=== PATIENT | female | born 1935 | race Caucasian/White ===

== ENCOUNTER 2018-10-08 15:25 | Emergency (ER) | payer MEDICARE ==
[2018-10-08 15:47] VITALS: BP 115/55; PULSE 53; RESP 18; TEMP 97.7
--- NOTE | 2018-10-08 16:08 | ED ---
Fall HPI - General Chief Complaint: Fall Stated Complaint: Fall Time Seen by Provider: 10/08/18 15:30 Source: family Mode of arrival: EMS - History of Present Illness Initial Comments: 82-year-old female past medical history of hypertension and Alzheimer's presenting today for fall. Patient is accompanied by daughter and . Patient has poor short-term memory interfering with history taking. states that patient has had frequent falls due to her decreasing visual acuity and progressive dementia. He states that he was helping patient to the bathroom when she tripped over her feet falling forward into him him a he states they both fell to the ground. He states he is almost positive but not 100% sure that she did not hit her head. He denies her losing consciousness or passing out prior to falling. She states this was mechanical and due to her catching her feet. He states she was ambulatory following fall, fully weightbearing on both legs. He denied any abnormal or unusual behaviors following fall. He states she was acting like her usual self. Patient is able to answer questions for review of systems in regards to current symptoms, she denies any hip, back or neck pain visual changes, chest pain, dyspnea, shortness of breath, dyspnea on exertion. Patient states she is feeling well. Patient is smiling and appears well on examination. There is no evidence of bruising or soft tissue swelling upon general inspection. Patient's vital signs within acceptable limits. - Related Data Allergies Allergy/AdvReac Type Severity Reaction Status Date / Time No Known Allergies Allergy Verified 10/08/18 15:41 Review of Systems ROS Statement: Those systems with pertinent positive or pertinent negative responses have been documented in the HPI. ROS Other: All systems not noted in ROS Statement are negative. Past Medical History Past Medical History: Dementia, Hypertension History of Any Multi-Drug Resistant Organisms: None Reported Past Surgical History: Unable to Obtain Past Psychological History: Unable to Obtain Smoking Status: Never smoker Past Alcohol Use History: None Reported Past Drug Use History: None Reported General Exam - General Exam Comments Initial Comments: General: The patient is awake and alert, in no distress, and does not appear acutely ill. Eye: +3 mm pupils are equal, round and reactive to light, extra-ocular movements are intact. No nystagmus. There is normal conjunctiva bilaterally. No signs of icterus. Ears, nose, mouth and throat: There are moist mucous membranes and no oral lesions. Neck: The neck is supple, there is no tenderness or JVD. Cardiovascular: There is a regular rate and rhythm. No murmur, rub or gallop is appreciated. Respiratory: Lungs are clear to auscultation, respirations are non-labored, breath sounds are equal. No wheezes, stridor, rales, or rhonchi. Gastrointestinal: Soft, non-distended, non-tender abdomen without masses or organomegaly noted. There is no rebound or guarding present. Bowel sounds are unremarkable. Musculoskeletal: H joint of the upper and lower extremities were palpated, patient denies any pain there is no noted soft tissue swelling. No shortening or internal rotation noted of the hips. Patient is able to fully weight-bear and ambulate upon examination. Normal ROM, no tenderness of the upper and lower extremities. Strength 5/5. Sensation intact of the upper and lower extremities. Radial pulses equal bilaterally 2+. Neurological: A&O x 3. CN II-XII intact, There are no obvious motor or sensory deficits. Coordination appears grossly intact. Speech is normal. Skin: Skin is warm and dry and no rashes or lesions are noted. There are no areas of ecchymosis or soft tissue swelling. No abrasions or lacerations. No skin tears. Psychiatric: Cooperative, appropriate mood & affect, normal judgment. Limitations: altered mental status Course Vital Signs 10/08/18 15:41 Temperature 97.7 F Pulse Rate 53 L Respiratory 18 Rate Blood Pressure 115/55 O2 Sat by Pulse 99 Oximetry - Reevaluation(s) Reevaluation #1: Social work was contacted due to frequent falls due to patient's chronic medical conditions. Patient lives alone with her , this is her 11th fall in the past 2 years. 10/08/18 16:08 Medical Decision Making - Medical Decision Making No concerning physical examination findings. No signs of focal neurological deficits. CT of the brain and C-spine without contrast negative for acute intracranial process. states that this fall was mechanical. Vital signs within acceptable limits. machine lay out worker contacted due to patient's progressive dementia and falls and home. Family was given references for long- term care facilities, assisted living facilities, and in-home help. Family states that they will arrange more in-home help or consider assisted living situation. Family states the patient is acting appropriately, at baseline. At this time I feel patient is stable for discharge with primary care follow-up in the next 1-2 days. Patient discharged in stable condition after discussing case with Dr. Purvis. Disposition Clinical Impression: Fall Disposition: HOME SELF-CARE Condition: Good Instructions: Fall Prevention for Older Adults (ED) Additional Instructions: Please follow-up with family doctor in the next 2 days. Please return to emergency room if the symptoms increase or worsen or for any other concerns. Is patient prescribed a controlled substance at d/c from ED?: No Referrals: Jean Paul Sutherland MD [Primary Care Provider] - 1-2 days Time of Disposition: 18:11
--- NOTE | 2018-10-08 16:35 | CT ---
EXAMINATION TYPE: CT brain yue daniel DATE OF EXAM: 10/08/2018 COMPARISON: None HISTORY: 82-year-old female FALL on thinners CT DLP: 1151.2 mGycm Automated exposure control for dose reduction was used. Technique: Examination of the head was done in axial plane without intravenous contrast. Coronal and sagittal reconstructions performed. CT of the cervical spine was obtained in axial plane without intravenous injection of contrast mater ial. Coronal and sagittal reformatted images were obtained from the axial views for evaluation of f ractures, spinal alignment and canal. FINDINGS: Head: There is no evidence of acute intracranial hemorrhage, acute ischemic changes, mass, mass-effect, or extra-axial fluid collection. There is no effacement of cerebral sulci or basal subarachnoid cister ns. There is no hydrocephalus. There is no midline shift. Alvarado-white matter distinction is preserv ed. There is mild generalized supratentorial volume loss. 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 Paranasal sinuses and mastoid air cells well pneumatized. Orbits and globes appear intact. Cervical spine: Scattered periodontal disease is present. No craniocervical junction abnormality, predental space widening, or prevertebral soft tissue swellin g. Degenerative changes at the C1 dens articulation. Trace grade 1 anterolisthesis at C4-C5 and at C7-T1. Moderate to advanced disc/endplate degenerative change at C5-C6 and moderate at C6-C7. Disc osteophyte complex is are present at these levels contrib uting to mild narrowing of the spinal canal. Hypertrophic facet and uncovertebral joint arthropathy throughout, particularly on the right. No acute fracture of the cervical spine. Vertebral moderate neuroforaminal stenoses made to lower cervical spine. Calcified granuloma peripheral left upper lobe. Possible nodular density left upper lobe, axial image 95 measuring 5 mm can be reassessed in 3 months. Sagittal and coronal reformatted images confirm above findings. COMBINED IMPRESSION: 1. Mild generalized atrophy, prior bifrontal vincent hole, and underlying bifrontal encephalomalacia, ri ght greater than left probably from prior posttraumatic sequela. No acute intracranial abnormality se en. 2. No acute fracture of the cervical spine. Moderate spondylotic change with degenerative grade 1 ant erolisthesis at C4-C5 and C7-T1. 3. Possible 5 mm left upper lobe pulmonary nodule. Three-month follow-up contrast enhanced CT chest r ecommended to reassess and survey the entire lungs.
== END 2018-10-08 18:33 | disposition home or self-care (01) ==
LOC: EC 15:25
DX: Z04.3 Encounter for examination and observation following other accident (principal); R29.6 Repeated falls; G30.9 Alzheimer's disease, unspecified; F02.80 Dementia in other diseases classified elsewhere, unspecified severity, without behavioral disturbance, psychotic disturbance, mood disturbance, and anxiety; W01.0XXA Fall on same level from slipping, tripping and stumbling without subsequent striking against object, initial encounter; Y93.89 Activity, other specified; Y92.009 Unspecified place in unspecified non-institutional (private) residence as the place of occurrence of the external cause
CPT/HCPCS: 70450; 72125; 99284